=== PATIENT | female | born 1935 | race Hispanic/Latino ===

== ENCOUNTER 2017-11-02 17:00 | Emergency (ER) | payer MEDICARE ==
[2017-11-02 17:56] LABS: Bilirubin Negative (Negative); Blood, Urine Large (Negative); Clarity CLOUDY (Clear); Glucose, Urine (Dipstick) Negative (Negative); Leukocyte Large (Negative); Nitrite Negative (Negative); Protein, Urine (Dipstick) 100 mg/dL (Neg-Trace); Specific Gravity, Urine 1.009 (1.002-1.036); Urobilinogen 0.2 mg/dL (0.2-1.0); pH, Urine 6.5 (5.0-9.0)
[2017-11-02 17:57] LABS: Bacteria/HPF None Seen HPF (None Seen); Hyaline Casts/LPF 0-3 HYALINE CAST LPF (0-3 Hyaline); Squamous Epithelial None Seen HPF (0-3); WBC/HPF 0-3 HPF (0-3)
[2017-11-02 17:58] LABS: Yeast-AUWi Flag 78.7 (0-25.0)
[2017-11-02 18:04] LABS: Yeast-All Forms None Seen HPF (None Seen)
[2017-11-02 18:34] LABS: #Eosinphils 0.1 thou/uL (0.0-0.7); #Lymphocytes 1.5 thou/uL (1.20-3.40); #Monocytes 0.5 thou/uL (0.11-0.59); #Neutrophils 8.4 thou/uL (1.40-6.50); %Basophils 0.1 % (0.0-1.0); %Eosinophils 0.7 % (0.0-10.0); %Lymphocytes 13.9 % (21.0-51.0); %Monocytes 4.8 % (0.0-10.0); %Neutrophils 80.4 % (42.0-75.0); Hemoglobin 14.8 g/dL (12.0-16.0); Mean Corpuscular Hemoglobin 31.3 pg (27.0-31.0); Mean Corpuscular Volume 92.2 fL (78.0-98.0); Mean Platelet Volume 6.5 fL (7.4-10.4); Platelet Count 299 thou/uL (130-400); Red Blood Cell (RBC) Count 4.73 mill/uL (4.20-5.40); White Blood Cell (WBC) Count 10.5 thou/uL (4.8-10.8)
[2017-11-02 18:58] LABS: ALT (SGPT) 18 U/L (8-55); AST (SGOT) 22 U/L (5-34); Albumin 3.9 g/dL (3.4-4.8); Alkaline Phosphatase 91 U/L (40-150); Anion Gap 13 mmol/L (10-20); BUN (Urea Nitrogen) 16 mg/dL (9.8-20.1); Bilirubin, Total 0.8 mg/dL (0.2-1.2); Calc. Creatinine Clearance 0 mL/min (70-130); Calcium 8.9 mg/dL (7.8-10.44); Carbon Dioxide 24 mmol/L (23-31); Chloride 104 mmol/L (98-107); Estimated GFR-MDRD 86; Globulin 3.5 g/dL (2.4-3.5); Glucose 106 mg/dL (83-110); Potassium 3.9 mmol/L (3.5-5.1); Protein, Total 7.4 g/dL (6.0-8.3); Sodium 137 mmol/L (136-145)
--- NOTE | 2017-11-02 19:11 | CT ---
CT ABDOMEN AND PELVIS WITHOUT CONTRAST: Date: 11/02/17 HISTORY: Hematuria, dysuria. FINDINGS: Comparison made with exam of 03/16/15. Absence of oral and IV contrast reduces the sensitivity of exam, particularly for evaluation of solid organs and bowel. The lung bases are clear. No free air or free fluid is seen in the abdomen or pelvis. An approximatel y 1.0 cm low density in the left lobe of the liver is stable. No calcified gallstones are seen. No calculi are seen in the kidneys, ureters, or urinary bladder. No hydroureteronephrosis is seen on either side. There is a small cortical scar in the left kidney. There is a 1.0 cm hyperdense lesion i n the left renal cortex measuring 72 Hounsfield units and consistent with a hyperdense cyst. This jorge eared hypodense, measuring 3 Hounsfield units, on the previous study. A small, fat-containing umbilical hernia is present. The small bowel loops are not abnormally dilated . A normal appearing appendix is present. There is colonic diverticulosis without evidence of diverti culitis. IMPRESSION: 1. Stable small low density lesion in the left lobe of the liver since 2014. 2. No CT evidence of urinary tract calculi obstruction. 3. 1.0 cm left hyperdense cyst in the left renal cortex. 4. Colonic diverticulosis. POS: [facility]
== END 2017-11-02 20:06 | disposition home or self-care (01) ==
LOC: ERS 17:00
DX: N39.0 Urinary tract infection, site not specified (principal); R31.9 Hematuria, unspecified; I10 Essential (primary) hypertension; N28.1 Cyst of kidney, acquired; Z79.899 Other long term (current) drug therapy
CPT/HCPCS: 36415; 74176; 80053; 81003; 81015; 85025; 87086

== ENCOUNTER 2018-07-15 02:54 | Emergency (ER) | payer MEDICARE ==
[2018-07-15 03:54] LABS: Bilirubin Negative (Negative); Blood, Urine Moderate (Negative); Clarity CLOUDY (Clear); Glucose, Urine (Dipstick) Negative (Negative); Leukocyte Large (Negative); Nitrite Negative (Negative); Protein, Urine (Dipstick) Negative (Neg-Trace); Specific Gravity, Urine 1.007 (1.002-1.036); Urobilinogen 0.2 mg/dL (0.2-1.0); pH, Urine 7.5 (5.0-9.0)
[2018-07-15 03:57] LABS: Bacteria/HPF None Seen HPF (None Seen); Hyaline Casts/LPF 0-3 HYALINE CAST LPF (0-3 Hyaline); Pathc Cast-AUWi Flag 0.43 (0-2.49); Squamous Epithelial None Seen HPF (0-3)
[2018-07-15 03:59] LABS: ALT (SGPT) 17 U/L (8-55); AST (SGOT) 24 U/L (5-34); Albumin 3.8 g/dL (3.4-4.8); Alkaline Phosphatase 99 U/L (40-150); Anion Gap 13 mmol/L (10-20); BUN (Urea Nitrogen) 10 mg/dL (9.8-20.1); Bilirubin, Total 0.9 mg/dL (0.2-1.2); Calc. Creatinine Clearance 0 mL/min (70-130); Calcium 9.4 mg/dL (7.8-10.44); Carbon Dioxide 29 mmol/L (23-31); Chloride 103 mmol/L (98-107); Estimated GFR-MDRD 80; Globulin 3.6 g/dL (2.4-3.5); Glucose 122 mg/dL (83-110); Lipase 17 U/L (8-78); Potassium 4.8 mmol/L (3.5-5.1); Protein, Total 7.4 g/dL (6.0-8.3); Sodium 140 mmol/L (136-145)
[2018-07-15 04:02] LABS: Band 6 % (5-11); Hemoglobin 14.9 g/dL (12.0-16.0); Lymphocytes 31 % (21-51); MDiff Complete? YES; Mean Corpuscular HGB CONC 32.7 g/dL (32.0-36.0); Mean Corpuscular Hemoglobin 30.6 pg (27.0-31.0); Mean Corpuscular Volume 93.4 fL (78.0-98.0); Mean Platelet Volume 7.9 fL (7.4-10.4); Monocytes 6 % (0-10); Neutrophil 57 % (42-75); Platelet Count 311 thou/uL (130-400); RBC Distribution Width 12.3 % (11.5-14.5); Red Blood Cell (RBC) Count 4.88 mill/uL (4.20-5.40); White Blood Cell (WBC) Count 6.9 thou/uL (4.8-10.8)
[2018-07-15 04:06] LABS: Transitional Epithelial NONE SEEN HPF (0-3); Yeast-All Forms None Seen HPF (None Seen)
== END 2018-07-15 04:36 | disposition home or self-care (01) ==
LOC: ERS 02:54
DX: N30.00 Acute cystitis without hematuria (principal); I10 Essential (primary) hypertension; F41.9 Anxiety disorder, unspecified; F32.9 Major depressive disorder, single episode, unspecified
CPT/HCPCS: 36415; 80053; 81003; 81015; 83690; 85025; 99284

== ENCOUNTER 2018-07-31 08:41 | Outpatient (CLI) | payer MEDICARE ==
--- NOTE | 2018-07-31 10:59 | BD ---
BONE DENSITOMETRY: Date: 07/31/18 HISTORY: 83-year-old female for postmenopausal osteoporosis screening. FINDINGS: Lumbar Spine: BMD (g/cm2) L1 0.856 T-Score: -1.2 L2 0.782 T-Score: -2.2 L3 0.846 T-Score: -2.2 L4 0.876 T-Score: -1.7 L1-L4 0.837 T-Score: -1.9 Femoral Neck: 0.631 T-Score: -2.0 Total Femur: 0.869 T-Score: -0.6 IMPRESSION: Bone mineral density of the lumbar spine and femoral neck both indicate osteopenia. 10 YEAR FRACTURE RISK: Major osteoporotic fracture: 8% Hip fracture: 2.1% POS: [facility]
--- NOTE | 2018-07-31 11:42 | ULT ---
LIMITED SOFT TISSUE ULTRASOUND: DATE: 07/31/2018. PROVIDED CLINICAL HISTORY: Abdominal wall mass, question abdominal hernia. FINDINGS: Correlation is made with the CT examination 11/02/2017. Superficial to the umbilicus is a circumscribed area of altered echogenicity measuring approximately 2.9 x 3.2 cm. Contiguity with the peritoneal fat is not demonstrated sonographically and the sonogra phic appearance of this process is nonspecific. IMPRESSION: Nonspecific mass-like area of altered echogenicity within the subcutaneous adipose layer of the anter ior abdominal wall superior to the umbilicus. Correlation with CT is recommended. POS: OFF
== END 2018-07-31 08:42 | disposition home or self-care (01) ==
LOC: BICULT 08:41
PROVIDERS: ATTEND Family Medicine
DX: Z13.820 Encounter for screening for osteoporosis (principal); R19.00 Intra-abdominal and pelvic swelling, mass and lump, unspecified site; M85.89 Other specified disorders of bone density and structure, multiple sites
CPT/HCPCS: 36415; 76705; 77080; 80053; 80061; 83036; 84443; 85025

== ENCOUNTER 2019-05-21 00:26 | Emergency (ER) | payer MEDICARE ==
[2019-05-21] MEDS ORDERED: Ketorolac Tromethamine 30 MG/ML VIAL ONE (01:13)
[2019-05-21] MEDS ORDERED: Acetaminophen 325 MG TAB ONE (01:13)
--- NOTE | 2019-05-21 07:46 | CT ---
PRELIMINARY REPORT/DIRECT RADIOLOGY/EMERGENCY AFTER HOURS PROCEDURE: CT BRAIN WO CON History: ER 14... 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 Findings: There is mild motion artifact. Bilateral periventricular and subcortical white matter hypod ensities are noted, most likely on the basis of chronic small vessel ischemia. Foote-white interface preserved throughout. No evidence of sulcal effacement. No intracranial hemorrhage, mass effect or mi dline shift. No hydrocephalus or extra-axial fluid collection. Calvarium intact. No focal scalp hematoma identified. Orbits, paranasal sinuses and mastoid air cells are unremarkable. Vascular calcifications are present . Impression: 1. No acute intracranial abnormality identified. 2. Senescent intracranial findings, as above. ELECTRONICALLY SIGNED BY: Luis Cuellar DO May 21, 2019 3:03:50 AM [facility] FINAL REPORT HEAD CT WITHOUT CONTRAST: DATE: 05/21/2019. COMPARISON: 07/05/2014. HISTORY: Hypertension, Claire's palsy, headache. FINDINGS: I agree with the preliminary report. Imaged paranasal sinuses and mastoid air cells well-aerated. No displaced calvarial fracture. No intracranial hemorrhage, midline shift, mass effect, or ventricular enlargement. IMPRESSION: No acute findings. Transcribed Date/Time: 05/21/2019 7:50 AM
== END 2019-05-21 04:26 | disposition home or self-care (01) ==
LOC: ERS 00:26
DX: R51 Headache (principal); I10 Essential (primary) hypertension; F41.9 Anxiety disorder, unspecified; F32.9 Major depressive disorder, single episode, unspecified; Z79.899 Other long term (current) drug therapy
CPT/HCPCS: 70450; 96361; 96374; J1885

== ENCOUNTER 2020-02-11 18:21 | Emergency (ER) | payer MEDICARE ==
[2020-02-11 21:44] LABS: #Eosinphils 0.1 thou/uL (0.0-0.7); #Lymphocytes 1.9 thou/uL (1.20-3.40); #Monocytes 0.4 thou/uL (0.11-0.59); #Neutrophils 5.7 thou/uL (1.40-6.50); %Basophils 0.6 % (0.0-1.0); %Eosinophils 1.1 % (0.0-10.0); %Lymphocytes 23.4 % (21.0-51.0); %Monocytes 4.5 % (0.0-10.0); %Neutrophils 70.4 % (42.0-75.0); Hemoglobin 15.5 g/dL (12.0-16.0); Mean Corpuscular HGB CONC 33.2 g/dL (32.0-36.0); Mean Corpuscular Hemoglobin 31.1 pg (27.0-31.0); Mean Corpuscular Volume 93.9 fL (78.0-98.0); Mean Platelet Volume 7.3 fL (7.4-10.4); Platelet Count 328 thou/uL (130-400); RBC Distribution Width 12.2 % (11.5-14.5); Red Blood Cell (RBC) Count 4.99 mill/uL (4.20-5.40); White Blood Cell (WBC) Count 8.2 thou/uL (4.8-10.8)
[2020-02-11 22:05] LABS: ALT (SGPT) 16 U/L (8-55); AST (SGOT) 21 U/L (5-34); Albumin 3.9 g/dL (3.4-4.8); Alkaline Phosphatase 99 U/L (40-110); Anion Gap 13 mmol/L (10-20); BUN (Urea Nitrogen) 12 mg/dL (9.8-20.1); Bilirubin, Total 0.8 mg/dL (0.2-1.2); Calc. Creatinine Clearance 0 mL/min (70-130); Calcium 8.9 mg/dL (7.8-10.44); Carbon Dioxide 27 mmol/L (23-31); Chloride 104 mmol/L (98-107); Estimated GFR-MDRD 80; Globulin 3.6 g/dL (2.4-3.5); Glucose 119 mg/dL (83-110); Potassium 4.2 mmol/L (3.5-5.1); Protein, Total 7.5 g/dL (6.0-8.3); Sodium 140 mmol/L (136-145)
[2020-02-11] MEDS ORDERED: Meclizine HCl 25 MG TAB ONE (22:06)
[2020-02-11 23:15] LABS: Bacteria/HPF None Seen HPF (None Seen); Bilirubin Negative (Negative); Blood, Urine Negative (Negative); Clarity Clear (Clear); Glucose, Urine (Dipstick) Normal (Negative); Ketone, Urine Negative (Negative); Leukocyte 250 Leu/uL (Negative); Mucous/LPF Rare LPF (<2+); Nitrite Negative (Negative); Protein, Urine (Dipstick) Negative (Neg-Trace); RBC/HPF 0-3 HPF (0-3); Specific Gravity, Urine 1.017 (1.002-1.036); Squamous Epithelial 0-3 HPF (0-3); Urobilinogen Normal mg/dL (Less than 2); pH, Urine 6.5 (5.0-9.0)
--- NOTE | 2020-02-12 08:36 | CT ---
CT HEAD WIKTHOUT CONTRAST: INDICATION: Hypertension with dizziness and headache. COMPARISON: 05/21/2019. FINDINGS: Ventricles have normal size and position. No evidence of intracranial mass or hemorrhage. No edema or infarct. No interval change. IMPRESSION: No acute finding. POS: [facility]
== END 2020-02-11 23:40 | disposition home or self-care (01) ==
LOC: ERS 18:21
DX: R42 Dizziness and giddiness (principal); I10 Essential (primary) hypertension; G51.0 Bell's palsy; F41.9 Anxiety disorder, unspecified; F32.9 Major depressive disorder, single episode, unspecified; Z79.899 Other long term (current) drug therapy
CPT/HCPCS: 70450; 80053; 81003; 81015; 84484; 85025; 93005; 96360

== ENCOUNTER 2021-02-22 09:06 | Outpatient (CLI) | payer MEDICARE | END 2021-02-22 09:07 | disposition home or self-care (01) | LOC: BICMAMMO 09:06 | PROVIDERS: ATTEND Internal Medicine | DX: Z13.820 Encounter for screening for osteoporosis (principal); M85.89 Other specified disorders of bone density and structure, multiple sites | CPT/HCPCS: 77080 ==

== ENCOUNTER 2021-09-21 08:19 | Outpatient (CLI) | payer MEDICARE | END 2021-09-21 08:20 | disposition home or self-care (01) | LOC: BICULT 08:19 | PROVIDERS: ATTEND Internal Medicine | DX: R10.9 Unspecified abdominal pain (principal); N28.1 Cyst of kidney, acquired; K76.9 Liver disease, unspecified | CPT/HCPCS: 76700 ==

== ENCOUNTER 2024-02-28 12:10 | Emergency (ER) | payer MEDICARE, OTHER ==
[2024-02-28 12:48] LABS: #Basophils Less than 0.03 10x3/uL (0.0-0.2); %Basophils 0.3 % (0.0-1.0); %Eosinophils 1.5 % (0.0-10.0); %Lymphocytes 27.9 % (21.0-51.0); %Monocytes 4.1 % (0.0-10.0); %Neutrophils 65.9 % (42.0-75.0); Hematocrit 45.9 % (36.0-47.0); Hemoglobin 14.9 g/dL (12.0-16.0); Mean Corpuscular HGB CONC 32.5 g/dL (32.0-36.0); Mean Corpuscular Volume 92.4 fL (78.0-98.0); Mean Platelet Volume 9.3 fL (7.4-10.4); Platelet Count 332 10x3/uL (130-400); RBC Distribution Width 14.2 % (11.5-14.5); Red Blood Cell (RBC) Count 4.97 mill/uL (4.20-5.40)
[2024-02-28 13:08] LABS: ALT (SGPT) 17 U/L (8-55); AST (SGOT) 22 U/L (5-34); Albumin 3.3 g/dL (3.4-4.8); Alkaline Phosphatase 99 U/L (40-110); Anion Gap 12 mmol/L (10-20); BUN (Urea Nitrogen) 11 mg/dL (9.8-20.1); Bilirubin, Total 0.9 mg/dL (0.2-1.2); Calc. Creatinine Clearance 0 mL/min (70-130); Calcium 8.8 mg/dL (7.8-10.44); Carbon Dioxide 26 mmol/L (23-31); Chloride 104 mmol/L (98-107); Estimated GFR 86; Globulin 3.8 g/dL (2.4-3.5); Glucose 151 mg/dL (83-110); Potassium 4.2 mmol/L (3.5-5.1); Protein, Total 7.1 g/dL (5.8-8.1); Sodium 138 mmol/L (136-145); Troponin I Less than 0.010 ng/mL (< 0.028)
[2024-02-28] MEDS ORDERED: Lidocaine 4% Patch ONE (14:42)
== END 2024-02-28 15:12 | disposition home or self-care (01) ==
LOC: ERS 12:10
DX: I10 Essential (primary) hypertension (principal); M54.2 Cervicalgia; G89.29 Other chronic pain
CPT/HCPCS: 36415; 71045; 80053; 84484; 85025; 93005

== ENCOUNTER 2025-01-25 12:11 | Emergency (ER) | payer MEDICARE, OTHER ==
[2025-01-25 13:36] LABS: #Basophils 0.03 10x3/uL (0.0-0.2); #Eosinophils 0.10 10x3/uL (0.0-0.7); #Monocytes 0.43 10x3/uL (0.11-0.59); #Neutrophils 6.14 10x3/uL (1.40-6.50); %Basophils 0.4 % (0.0-1.0); %Eosinophils 1.2 % (0.0-10.0); %Lymphocytes 20.1 % (21.0-51.0); %Monocytes 5.1 % (0.0-10.0); %Neutrophils 72.8 % (42.0-75.0); Hematocrit 48.0 % (36.0-47.0); Hemoglobin 15.9 g/dL (12.0-16.0); Mean Corpuscular Hemoglobin 29.3 pg (27.0-31.0); Mean Corpuscular Volume 88.4 fL (78.0-98.0); Platelet Count 317 10x3/uL (130-400); Red Blood Cell (RBC) Count 5.43 mill/uL (4.20-5.40); White Blood Cell (WBC) Count 8.42 10x3/uL (4.8-10.8)
[2025-01-25 13:50] LABS: ALT (SGPT) 10 U/L (Less than 34); AST (SGOT) 18 U/L (11-34); Albumin 3.2 g/dL (3.1-4.5); Alkaline Phosphatase 84 U/L (40-110); Anion Gap 17 mmol/L (10-20); BUN (Urea Nitrogen) 12 mg/dL (9.8-20.1); Bilirubin, Total 0.8 mg/dL (0.3-1.2); Calc. Creatinine Clearance 0 mL/min (70-130); Calcium 8.9 mg/dL (7.8-10.44); Carbon Dioxide 21 mmol/L (23-31); Chloride 104 mmol/L (98-107); Globulin 3.3 g/dL (2.4-3.5); Glucose 135 mg/dL (83-110); Potassium 3.7 mmol/L (3.5-5.1); Sodium 138 mmol/L (136-145)
[2025-01-25] MEDS ORDERED: Iopamidol-370 76% 500 ML MDV (1 ML CHARGE) ONE (14:29)
== END 2025-01-25 15:40 | disposition home or self-care (01) ==
LOC: ERS 12:11
DX: J06.9 Acute upper respiratory infection, unspecified (principal); B97.89 Other viral agents as the cause of diseases classified elsewhere
CPT/HCPCS: 71045; 71275; 80053; 83880; 84484; 85025; 85379; 87428; 93005; 94760; Q9967

== ENCOUNTER 2025-04-20 01:56 | Emergency (ER) | payer OTHER | END 2025-04-20 04:55 | disposition home or self-care (01) | LOC: ERS 01:56 | DX: K59.00 Constipation, unspecified (principal); K57.90 Diverticulosis of intestine, part unspecified, without perforation or abscess without bleeding; J02.9 Acute pharyngitis, unspecified; B34.9 Viral infection, unspecified; I10 Essential (primary) hypertension | CPT/HCPCS: 74176; 87081; 87428; 87430 ==